=== PATIENT | male | born 1985 | race Caucasian/White ===

== ENCOUNTER 2017-05-30 14:15 | Emergency (ER) | payer BC, OTHER ==
--- NOTE | 2017-05-30 14:24 | UC ---
Throat Pain/Nasal Rosalio HPI - HPI Summary HPI Summary: 32 y/o male presents to the urgent care c/o sore throat and sinus pressure since Wednesday05/26/2017. Pt reports he went to the PCP on and Strep was negative. However his has had temp of 102F at home. He feels nasal pressure w/ yellowish nasal discharge, sore throat pain is 7/10 w/ swallowing. Fever has resolved since he took advil yesterday. Pt denies cough, SOB, SESAY, chest pain, N/V/D. He doesn't have any other complains. - History of Current Complaint Chief Complaint: UCRespiratory Stated Complaint: SINUS,FEVER, SORE THROAT Time Seen by Provider: 05/30/17 14:23 Hx Obtained From: Patient Onset/Duration: Gradual Onset, Lasting Days, Still Present Severity: Moderate Pain Intensity: 7 Pain Scale Used: 0-10 Numeric Associated Signs & Symptoms: Positive: Dysphagia, Fever Related History: Seasonal Allergies - Allergies/Home Medications Allergies/Adverse Reactions: Allergies Allergy/AdvReac Type Severity Reaction Status Date / Time Cefaclor [From Ceclor] Allergy Unknown Verified 05/30/17 14:25 Reaction Details Home Medications: Home Medications Finasteride [Proscar] 5 mg PO 05/30/17 [History] Multiple Vitamin [Multivitamins] 1 cap PO 05/30/17 [History] PMH/Surg Hx/FS Hx/Imm Hx Previously Healthy: Yes Other GI/ History: BPH - Family History Known Family History: Positive: Diabetes - Social History Occupation: Employed Full-time Lives: With Family Review of Systems Constitutional: Fever - on and off at home Skin: Negative Eyes: Negative ENT: Sore Throat, Nasal Discharge, Sinus Congestion - yellowish discharge Respiratory: Negative Cardiovascular: Negative Gastrointestinal: Negative Genitourinary: Negative Motor: Negative Neurovascular: Negative Musculoskeletal: Negative Neurological: Negative Psychological: Negative All Other Systems Reviewed And Are Negative: Yes Physical Exam Triage Information Reviewed: Yes Appearance: Well-Appearing, No Pain Distress, Well-Nourished Vital Signs Reviewed: Yes Eye Exam: Normal Eyes: Positive: Conjunctiva Clear - PERRLA, EOMI, fundi grossly normal ENT Exam: Normal ENT: Positive: Normal ENT inspection, Hearing grossly normal, Pharyngeal erythema - w/ moderate swelling, no exudate, Nasal congestion - edematous nasal mucosa w/ yellowish nasal discharge, TMs normal - LF external ear canal impacted w/ cerumen unable to visualize TM. RT TM and external ear canal wnl, Tonsillar swelling. Negative: Tonsillar exudate Dental Exam: Normal Neck exam: Normal Neck: Positive: Supple, Nontender, Enlarged Nodes @ - mild anterior cerviacl lymphadenopathy Respiratory Exam: Normal Respiratory: Positive: Chest non-tender, Lungs clear, Normal breath sounds Cardiovascular Exam: Normal Cardiovascular: Positive: RRR, No Murmur, Pulses Normal Abdominal Exam: Normal Abdomen Description: Positive: Nontender, No Organomegaly, Soft. Negative: CVA Tenderness (R) Bowel Sounds: Positive: Present Musculoskeletal Exam: Normal Musculoskeletal: Positive: Strength Intact, ROM Intact, No Edema Neurological Exam: Normal Psychological Exam: Normal Skin Exam: Normal Throat Pain/Nasal Course/Dx - Course Course Of Treatment: 32 y/o male presents to the urgent care c/o sore throat and sinus pressure since Wednesday05/26/2017. Hx obtained. PE abnormal findings :ENT: Positive: Normal ENT inspection, Hearing grossly normal, Pharyngeal erythema - w/ moderate swelling, no exudate, Nasal congestion - edematous nasal mucosa w/ yellowish nasal discharge, TMs normal - LF external ear canal impacted w/ cerumen unable to visualize TM. RT TM and external ear canal wnl, Tonsillar swelling. Negative: Tonsillar exudate. Pt already has seen PCP r/o strep. Dx Viral pharyngitis. Pt Rx ibuprofen Po after meals 2-3 days and advised to star the Melissa Po he has at home, Rx flonase to alleviate sinus pressure. Rx Debrox otic drops to alleviate Cerumen impaction on left ear canal. BP today elevated, advised to decrease salt in diet, monitor BP and f/u with his PCP for further management. Pt understood and agreed. - Differential Dx/Diagnosis Differential Diagnosis/HQI/PQRI: Laryngitis, Mononucleosis, Otitis Media, Peritonsillar Abscess, Pharyngitis, Tonsillitis Provider Diagnoses: 1- Viral pharyngitis. 2-LF ear cerumen impaction. 3- Elevated blood pressure w/o Hx of HTN Discharge - Discharge Plan Condition: Stable Disposition: HOME Prescriptions: Carbamide Peroxide 6.5% OTIC* [DEBROX 6.5% Otic*] 5 drop LEFT EAR BID #1 bottle Fluticasone NASAL SPRAY 50MCG* [Flonase NASAL SPRAY 50MCG*] 2 spray BOTH NARES DAILY #1 btl Ibuprofen TAB* [Motrin TAB* 800 MG] 800 mg PO Q6H #20 tab Patient Education Materials: Pharyngitis (ED), Cerumen Impaction (ED), Low Sodium Diet (ED) Referrals: [facility] [place] [facility] REFERRAL [Outside] - 1 Week Additional Instructions: 1- Take ibuprofen after meals to alleviate symptoms of pain and swelling. Increase fluid intake and rest. Avoid strenuous exercise. 2- Your BP is elevated today, please decrease salt in your diet and monitor upour BP at home and f/u with a PCP in the [facility] [place] referral center line for further evaluation and treatment.
[2017-05-30 14:45] VITALS: BP 154/74
== END 2017-05-30 14:52 | disposition home or self-care (01) ==
LOC: UCEAST 14:15
DX: J02.8 Acute pharyngitis due to other specified organisms (principal); H61.22 Impacted cerumen, left ear; R03.0 Elevated blood-pressure reading, without diagnosis of hypertension; N40.0 Benign prostatic hyperplasia without lower urinary tract symptoms
CPT/HCPCS: 99202; G0463